=== PATIENT | male | born 1925 | race Caucasian/White ===

== ENCOUNTER 2017-01-31 11:40 | Emergency (ER) | payer OTHER ==
[~2017-01-31] VITALS: Ht 170.2 cm; Wt 70.3 kg
--- NOTE | ~2017-01-31 | EKG ---
[place] [address] [facility] [employer] [place] [address] ELECTROCARDIOGRAM REPORT Name: STEPHEN BROWN [id number] Admission: 01/31/17 Attend Phys: Discharge: Date of : [birth year] Report #: [id number] THIS REPORT FOR: //name// [facility] ED Test Date: 2017-01-31 Test Time: 11:49:49 Pat Name: STEPHEN BROWN Department: Room: Gender: M Label Coder: EVA : 1925 Requested By: Jace Cohen Order Number: [id number] MD: Mirza Jefferson Measurements Intervals Matthews Rate: 65 P: 62 OH: 254 QRS: -37 QRSD: 150 T: 126 QT: 479 QTc: 499 Interpretive Statements Sinus rhythm Prolonged OH interval Left bundle branch block Baseline wander in lead(s) V6 Compared to ECG 09/24/2016 16:51:52 Atrial premature complex(es) no longer present Sinus pause or arrest no longer present Electronically Signed On 01-31-2017 14:41:18 CDT by Mirza Jefferson [email or web address] <ELECTRONICALLY SIGNED> By: Mirza Jefferson MD 01/31/17 1441 1149 1149 Mirza Jefferson MD /EPI
[~2017-01-31 11:40] MED LIST: ACYCLOVIR 400400 MG PO; APAP650 PO; ARTHRITIS CREAM TOP; ASA81BEC PO; ASPIRIN EC81 M1 PO; ASPIRIN325 PO; ASPIRIN81 M2 PO; CARDURA4 MG PO; CASODEX 50 MG T50 M1 PO; CENTRUM SILVER1 EAC4 PO; CLOPIDOGREL75 MG PO; COLACE 100 MG100 MG PO; COLACE100 MG PO; COUMADIN 2 MG TA2 M1; COUMADIN 5 MG TA5 M1; DEXAMETHASONE4 MG PO; DIPHENHIST25 M2 PO; DIPHENHYDRAMINE50 MG PO; FERRO-TIME325 MG PO; FISH OIL 1,0001 EAC5 PO; FLAGYL500 MG; FLOMAX0.4 MG PO; FLONASE 0.05%50 MCG NASAL; HUMIRA40 MG/0.8 SUBQ; HYDROCODON-ACE1 EAC7 PO; HYDROCODONE-AP1 EAC6 PO; IRON236 MG PO; LESCOL XL80 MG PO; LEVAQUIN 500 M500 MG PO; LIPITOR20 MG PO; LISINOPRIL10 MG PO; MEDROLDOSEPACK; MULTIVITAMINS PO; NEURONTIN 300300 M1 PO; NEXIUM40 MG PO; NORCO 5-325 TA1 EACH PO; ONDANSETRON2 MG/1 ML IV; PAIN RELIEVER1 EACH PO; PREDNISOLONE 5 M5 M1 PO; PREDNISONE 5 MG5 M1 PO; PROTONIX40 M4 PO; RENO CAPS SOFTGE1 MG PO; REVLIMID15 MG PO; SORINE 80 MG TA80 M1 PO; TAMIFLU30 MG PO; TESSALON PERLE100 MG PO; TUMS PO; TYLENOL325 MG PO
[2017-01-31] MEDS ORDERED: DEXAMETHASONE4 MG PO (11:58)
[2017-01-31] MEDS ORDERED: CARDURA4 MG PO (11:59)
[2017-01-31] MEDS ORDERED: MYRBETRIQ25 MG PO (12:00)
[2017-01-31] MEDS ORDERED: APAP500 PO (12:01)
[2017-01-31] MEDS ORDERED: TYLENOL PM EX-1 EACH PO (12:01)
[2017-01-31] MEDS ORDERED: ONDANSETRON HCL4 M2 PO (12:02)
[2017-01-31] MEDS ORDERED: SENSIPAR 30 MG30 M1 PO (12:04)
[2017-01-31 12:10] LABS: ABSOLUTE NEUTROPHILS 5.7 thou/uL (1.4-8.2); BASOPHILS 0.7 % (0.0-2.0); EOSINOPHILS 0.8 % (0.0-3.0); HEMATOCRIT 32.8 % (42.0-52.0); HEMOGLOBIN 11.2 gm/dL (14.0-18.0); LYMPHOCYTES 11.1 % (24.0-44.0); MCH 32.3 pg (26.0-34.0); MCHC 34.1 g/dL (28.0-37.0); MCV 94.7 fL (80.0-100.0); MONOCYTES 7.2 % (1.0-8.0); PLATELET COUNT 98 thou/uL (150-400); POLYS 80.2 % (36.0-66.0); RBC 3.46 mil/uL (4.50-6.00); RDW 15.5 % (10.5-14.5); WBC 7.1 thou/uL (4.0-11.0)
[2017-01-31 12:13] LABS: CALCIUM 8.4 mg/dL (8.5-10.1); CREATININE 3.3 mg/dL (0.7-1.3); MANUAL DIFF NO; POTASSIUM 4.3 mmol/L (3.5-5.1)
[2017-01-31 14:00] VITALS: BP 130/48
== END 2017-01-31 14:42 | disposition home or self-care (01) ==
LOC: ER 11:40
PROVIDERS: Emergency Medicine
DX: R55 Syncope and collapse (principal); E86.0 Dehydration; I48.91 Unspecified atrial fibrillation; M06.9 Rheumatoid arthritis, unspecified; F10.99 Alcohol use, unspecified with unspecified alcohol-induced disorder; Z98.890 Other specified postprocedural states; Z85.46 Personal history of malignant neoplasm of prostate; Z95.5 Presence of coronary angioplasty implant and graft; Z90.89 Acquired absence of other organs; Z96.651 Presence of right artificial knee joint; Z88.6 Allergy status to analgesic agent; Z91.041 Radiographic dye allergy status; Z88.5 Allergy status to narcotic agent; Z88.8 Allergy status to other drugs, medicaments and biological substances